=== PATIENT | male | born 1945 | race Caucasian/White ===

== ENCOUNTER 2017-09-07 07:23 | Day surgery (SDC) | payer MEDICARE ==
[~2017-09-07] VITALS: Ht 177.8 cm; Wt 84.6 kg
[~2017-09-07 07:23] MED LIST: ASPI81TA82 PO; ATEN-102 PO; OMEG100010 PO; PROT40TA PO; VITA20003
[2017-09-07] MEDS ORDERED: IOHEXOL 350 MG/ML 50 ML BTL (for Cath Lab) OTHER ONE (07:24)
[2017-09-07] MEDS ORDERED: NS 1000P @30 MLS/HR (KVO) IV SCH (07:45)
[2017-09-07 07:57] VITALS: BP 138/88; PULSE 80; RESP 17; TEMP 97.8; O2SAT 96
[2017-09-07] MEDS ORDERED: PROT40TA PO (08:03)
[2017-09-07] MEDS ORDERED: EVOL1.7I (08:03)
[2017-09-07] MEDS ORDERED: VITA1000 PO (08:03)
[2017-09-07] MEDS ORDERED: ASPI-516 CHEW (08:03)
[2017-09-07] MEDS ORDERED: COQ-30CA2 (08:03)
[2017-09-07] MEDS ORDERED: EZET10 PO (08:03)
[2017-09-07] MEDS ORDERED: PRAS10TA PO (08:03)
[2017-09-07] MEDS ORDERED: AZO-450T (08:03)
[2017-09-07] MEDS ORDERED: NITR1SUB3 SL (08:03)
[2017-09-07 08:07] LABS: AUTOMATED NEUTROPHIL # 2.9 TH/MM3 (1.8-7.7); BASOPHIL % 0.5 % (0.0-2.0); EOSINOPHIL # 0.3 TH/MM3 (0-0.4); EOSINOPHIL % 4.7 % (0.0-4.0); HEMATOCRIT 43.3 % (39.0-51.0); HEMOGLOBIN 15.2 GM/DL (13.0-17.0); LYMPH % 43.6 % (9.0-44.0); LYMPHOCYTE # 2.8 TH/MM3 (1.0-4.8); MEAN CELL VOLUME 90.9 FL (80.0-100.0); MEAN CORPUSCULAR HEMOGLOBIN 31.8 PG (27.0-34.0); MEAN PLATELET VOLUME 8.7 FL (7.0-11.0); MONO % 6.4 % (0.0-8.0); MONOCYTE # 0.4 TH/MM3 (0-0.9); NEUT % 44.8 % (16.0-70.0); PLATELET COUNT 175 TH/MM3 (150-450); RED BLOOD COUNT 4.76 MIL/MM3 (4.50-5.90); RED CELL DISTRIBUTION WIDTH 12.6 % (11.6-17.2); WHITE BLOOD COUNT 6.5 TH/MM3 (4.0-11.0)
[2017-09-07 08:14] LABS: INTERNATIONAL NORMALIZED RATIO 1.2 RATIO; PROTHROMBIN TIME - PATIENT 11.9 SEC (9.8-11.6)
[2017-09-07 08:30] LABS: BICARBONATE 27.8 MEQ/L (21.0-32.0); CALCIUM 8.6 MG/DL (8.5-10.1); CREATININE 1.01 MG/DL (0.60-1.30)
[2017-09-07] MEDS ORDERED: HEPARIN-NS/PF INJ 1,000 ML ONE (09:17)
[2017-09-07] MEDS ORDERED: VERAPAMIL HCL 5 MG/2 ML VIAL ONE (09:20)
[2017-09-07] MEDS ORDERED: HEPARIN SODIUM - IV 10,000 UNITS/10 ML VIAL ONE (09:20)
[2017-09-07] MEDS ORDERED: MIDAZOLAM HCL 2 MG/2 ML VIAL ONE (09:20)
--- NOTE | 2017-09-07 10:19 | CATHPROC ---
[employer] HIS Report Study Information Study Number Admission Scheduled Start Study Start [id number] Sep 07 2017 7:23AM 09/07/2017 Sep 07 2017 9:27AM Study Type [place] Service Left Heart Cath Cardiac Catheterization Admit Source Facility Department Other [facility] - Junior Accountant Bookkeeper Physician and Clinical Staff Initial Gagandeep Diop Bedspring Assembler Catarina Beard,[place] Recorder Caro Flores,RT(R) Scrub Mack Hobson RCIS(BS) Procedures Performed Procedure Location (Site) Vessel Name Coronary Angiograms RCA Right Coronary L Heart Cath Wire insertion Radial (right) Radial Art. Equipment Time License Examiner Description Size Mfg Part Number Used/Scraped TRANSDUCER, TRUWAVE [id number] 09:55 LEVIN ABDULLAHI * Used W/STOCKCOCK *[id number] *[id number] *[id number] 09:55 [employer] PACK, CCL CUSTOM * Used *[id number] 09:55 [employer] SUPPORT, ARTERIAL ADULT 25004 *[id number] Used BAND, RADIAL COMPRESSION TR [id number] 10:08 [employer] MEDICAL 29CM Used LARGE 29 *[id number] 09:55 [employer]iga WIRE, EXCHANGE 260CM 3MMJ 260CM Used *[id number] 09:55 NAMIC MANIFOLD, 4 PORT * Used *[id number] 09:55 [employer] OMNIPAQUE, 350 MG, 150ML 150ML [id number] Used 10:08 [employer]COMED OMNIPAQUE, 350 MG, 150ML 150ML [id number] Used [id number] 09:55 [employer] BLANKET,WARM AIR CCL * Used *[id number] SHEATH, FR6 TRANSRADIAL [id number] 09:55 TERY Combinator MEDICAL FR 6 Used SLENDER 10CM *[id number] History: Current Medications Medication Dosage/Unit Route Frequency Last Date/Time Taken ASA EFFIENT History: Allergies Allergy Reaction codeine pravastatin simvastatin amlodipine atorvastatin History: Risk Factors Family History of Hypertension Dyslipidemia Previous SC Previous Heart Failure Premature CAD Yes Yes No No No Prior Valve Prior PCI Prior PCIDate Prior CABG Surgery No Yes 09/06/2015 No Cerebrovascular Peripheral Artery Chronic Lung On Dialysis Diabetes Disease Disease Disease No No No No No History: Symptoms/Diagnosis Selection Items Chest pain History: CV Disease Selection Items Known CAD History: Stress Tests Stress or Imaging Studies Performed Yes Standard Exercise Stress Test No Stress Echo No Stress Test SPECT Stress Test SPECT Result Stress Test SPECT Ischemia Risk/Extent Yes Positive Intermediate Stress Test CMR No Cardiac CTA Coronary Calcium Score No No History: Other Current Smoker Method Quit Packs a Day Years Used Pack Years No Cigarettes 41 Years Ago 1 6 6 Labs Hgb (g/dl) Hct (%) RBC (MIL/MM3) WBC (l/cumm) Platelets (thousands) 11.60-17.00 35.00-51.00 4.00-5.90 4.00-11.00 150.00-450.00 15.2 43.3 4.7 6.5 175 Glucose (mg/dl) BUN (mg/dl) Creatinine (mg/dl) BUN:Creatinine (1:x) 74.00-106.00 7.00-18.00 0.50-1.30 10.00-20.00 111 15 1.0 15 Na (meq/l) K (meq/l) Cl (meq/l) CO2 (mmol/L) Ca (mg/dl) 136.00-145.00 3.50-5.10 98.00-107.00 21.00-32.00 8.50-10.10 141 4.2 108 27.8 8.6 PT (sec) PTT (sec) INR (PTT:PT) 9.80-11.60 24.30-30.10 0.90-1.10 11.9 26.6 1.2 CPK-MB (ng/ML) 0.50-3.60 Not Drawn Medication Medication Total Dose (Bolus/Oral) Medication Total Dosage/Unit 1% XYLOCAINE 20 mL FENTANYL 25 mcg RADIAL COCKTAIL 5 mL (Bolus) VERSED 0.5 mg Medications (Bolus/Oral) Medication Time Given Dosage/Unit Administered By Reason 1% XYLOCAINE 09/07/2017 9:53:40 AM 20 mL Patient arrived on 20 mL 1% XYLOCAINE in Right Radial via Subcutaneous. VERSED 09/07/2017 9:53:42 AM 0.5 mg Catarina Beard 0.5 mg VERSED given in lab by Catarina Beard, RN in Left Antecubital via Peripheral IV. Ntg 200mcg Verapamil 2.5mg Heparin RADIAL COCKTAIL 09/07/2017 9:55:06 AM 5 mL (Bolus) 3000U Patient arrived on 5 mL (Bolus) RADIAL COCKTAIL in Right Radial via Radial. Using [Solution Name]. Re ason: Ntg 200mcg Verapamil 2.5mg Heparin 3000U. 3400 HEPARIN FENTANYL 09/07/2017 10:17:09 AM 25 mcg Catarina Beard 25 mcg FENTANYL given in lab by Catarina Beard RN via Peripheral IV. Medication (Drip) Medication Time Given Dosage/Unit Concentration/Unit Diluent (ml) Solution IV Solutions 09/07/2017 9:27:32 AM 0 mL (IV) 500 NaCl .9 Patient arrived on IV Solutions in Left Antecubital via Peripheral IV. Pump/Drip Flow = 20 ml/hr usin g NaCl .9. Initial Case Assessment Cardiovascular HR Rhythm NIBP Chest Pain 70 REG 157/85 0 Edema Present Skin color Skin None Normal Warm Circulatory - Right Pulses Dorsalis Pedis Femoral Radial 2 2 2 Scale (0,1,2,3,4,d) Circulatory - Left Pulses Dorsalis Pedis Femoral Radial 2 Scale (0,1,2,3,4,d) Circulatory - Lower Extremities Color Lower Right Color Lower Left Normal Normal Neurological State Oriented to time-place- Alert Moves all extremities person Respiration - General Respiration Rate SpO2 (%) (B/min) 8 97 Final Case Assessment Cardiovascular HR Rhythm NIBP Chest Pain 68 REG 145/91 0 Edema Present Skin color Skin None Normal Warm Circulatory - Right Pulses Dorsalis Pedis Femoral Radial 2 2 2 Scale (0,1,2,3,4,d) Circulatory - Left Pulses Dorsalis Pedis Femoral Radial 2 Scale (0,1,2,3,4,d) Circulatory - Lower Extremities Color Lower Right Normal Neurological State Oriented to time-place- Alert Moves all extremities person Respiration - General Respiration Rate SpO2 (%) (B/min) 10 94 Chronological Log Time Study Chronological Log 9:27:23 Patient arrived via Bed. 9:27:24 Patient Name, D.O.B, / Armband Verified By R.N. ::24 Consent signed by the physician and the patient and verified by the Junior Accountant Bookkeeper staff. :27:25 Pre-op and post- op instructions given; patient acknowledges understanding of instructions. Verbal Stimulation=~VERBAL~ Physical Stimulation=~PHYSICAL~ Airway=~AIRWAY~ Respiration=~RESPIR ATION~ 9:27:25 TOTAL=~TOTAL~. (0=absent, 1=limited, 2=present) 9::27 Presedation assessment performed by Junior Accountant Bookkeeper RN. 9:: Allens test performed on the right radial and ulnar artery. 9:: Immediate Presedation assesment performed by physician. 9::28 Patient has been NPO for More than 6Hrs. 9:: Skin Breakdown- 9:: Patient Warmer Placed on the Table. 9::30 Genevieve Prominences Protected 9::32 A # 20 IV was noted in the Antecubital (left). Grade = 0 9::32 Patient arrived on IV Solutions in Left Antecubital via Peripheral IV. Pump/Drip Flow = 20 m l/hr using NaCl .9. 9:27:33 History and physical on the chart or being dictated. Vitals capture started with the following parameters, Patient=Adult, Interval=5 min, Initial Pr luqqtl=439 mmHg, 9:32:45 Deflation Rate=5 mmHg, Cuff placed on Left Arm 9:33:20 HR=68 bpm, XYHS=111/90 mmhg, SpO2=98.0 %, Resp=10 B/min, Pain=0, Dinesh=10, Miranda=2 9:36:12 Reference ECG taken 9:39:06 HR=70 bpm, PNQF=474/85 mmhg, SpO2=97.0 %, Resp=20 B/min, Pain=0, Dinesh=10, Miranda=2 Assessment: Initial Case, HR=70 BPM, Rhythm=REG, WNOM=429/85 mmhg, Chest Pain=0, Edema=None, Color=Normal, Skin = Warm Right Pulses: Jaime Ped=2, Femoral=2, Radial=2 Left Pulses: Jaime Ped=2 9:40:43 Lower Right Extremities: Color=Normal Lower Left Extremities: Color=Normal Neurological: State=Alert, Ox3, LITTLEJOHN Respiration: Resp=8 B/min, SpO2=97 % 9:41:31 Right Radial and groin(s) prepped with 2% chlorhexidine, and draped after a 3 min. waiting t mary. 9:43:22 HR=66 bpm, TWKP=058/85 mmhg, SpO2=98.0 %, Resp=8 B/min, Pain=0, Dinesh=10, Miranda=2 9:44:07 MD paged 9:45:10 Pressure channel 1 zeroed. 9:47:16 MD arrived. 9:48:21 HR=66 bpm, JYQP=358/86 mmhg, RtY9=519.0 %, Resp=8 B/min, Pain=0, Dinesh=10, Miranda=2 Time Out. Correct patient, correct procedure, correct physician, power injector not loaded with contrast with surgical 9:52:55 team present. Time Out Concurred by MD and individual staff in procedure. 9:53:08 Case Start 9:53:20 HR=78 bpm, BKOW=589/92 mmhg, PrJ4=765.0 %, Resp=11 B/min, Pain=0, Dinesh=10, Miranda=2 9:53:40 Patient arrived on 20 mL 1% XYLOCAINE in Right Radial via Subcutaneous. 9:53:42 0.5 mg VERSED given in lab by Catarina Beard, [place] in Left Antecubital via Peripheral IV. 9:54:18 Access site was Radial Artery.RT 9:54:26 A wire was inserted via Radial (right). A SHEATH, FR6 TRANSRADIAL SLENDER 10CM FR 6 was advanced into the Fem Art (right) using the Per cutaneous 9:54:39 technique. Patient arrived on 5 mL (Bolus) RADIAL COCKTAIL in Right Radial via Radial. Using [Solution Nam e]. Reason: Ntg 9:55:06 200mcg Verapamil 2.5mg Heparin 3000U. 3400 HEPARIN A JR 4.0 INFINITI CATHETER FR 6 was advanced over a wire. OMNIPAQUE, 350 MG, 150ML 150ML was us ed for 9:57:07 injections. 9:58:29 HR=75 bpm, RAFP=328/76 mmhg, SpO2=97.0 %, Resp=8 B/min, Pain=0, Dinesh=10, Miranda=2 Recorded Pressure: LV, HR=72, Condition=Condition 1 9:59:08 (Left Ventricle) LV 124/5/12 Recorded Pressure: LV, Ao, HR=74, Condition=Condition 1 9:59:24 (Left Ventricle) LV 126/1/11, (Aorta) Ao 126/71/97 Recorded Pressure: Ao, HR=73, Condition=Condition 1 9:59:51 (Aorta) Ao 127/72/97 10:00:40 The RCA was injected and visualized at various angles. OMNIPAQUE, 350 MG, 150ML 150ML used . After removing the current catheter a JL 3.5 INFINITI CATHETER FR 6 was advanced over a WIRE, E XCHANGE 260CM 10:02:35 3MMJ 260CM. 10:04:01 HR=81 bpm, EICS=400/91 mmhg, SpO2=97.0 %, Resp=8 B/min, Pain=0, Dinesh=10, Mirnada=2 10:06:49 Catheter was removed Assessment: Final Case, HR=68 BPM, Rhythm=REG, MZNG=246/91 mmhg, Chest Pain=0, Edema=None, Col or=Normal, Skin = Warm Right Pulses: Jaime Ped=2, Femoral=2, Radial=2 10:07:15 Left Pulses: Jaime Ped=2 Lower Right Extremities: Color=Normal Neurological: State=Alert, Ox3, LITTLEJOHN Respiration: Resp=10 B/min, SpO2=94 % 10:07:43 Catheter(s) removed without difficulty Radial Compression Device Used. 12 mLs of air placed in BAND, RADIAL COMPRESSION TR LARGE 29 2 9CM. Affected 10:07:45 hand 95 % O2 saturation. 10:08:08 Sterile dressing applied to site 10:08:09 No case complications noted. 10:08:09 Cine recording checked. 10:08:10 Case End 10:08:11 Bedside Report will be given. 10:08:13 Contrast Scanned 10:08:23 HR=63 bpm, GSEJ=362/84 mmhg, SpO2=97.0 %, Resp=9 B/min, Pain=0, Dinesh=10, Miranda=2 10:08:27 A Left Heart Cath was performed. 10:08:30 [facility] Clinical correlaton risk stratification. 10:13:22 YXVI=709/86 mmhg, SpO2=94.0 %, Pain=0, Dinesh=10, Miranda=2 10:13:42 Vitals capture stopped. 10:17:09 25 mcg FENTANYL given in lab by Catarina Beard, [place] via Peripheral IV. End Study - Contrast Media Used In Study Contrast Total Opened (mL) Total Used (mL) Total Wasted (mL) Omnipaque 30 30 0 End Study - Maximum Contrast Load Max Contrast Load (mL) 423.0 End Study - Radiation Exposure Fluoro Time (minutes) 2.6 End Study - Sheaths Sheaths Pulled By Sheath Hold Time (min) Mack Hobson End Study - Patient Disposition Complications Transferred To Interventional Outcome No Outpatient Bed No attempt made
[2017-09-07] MEDS ORDERED: MISC INFORMATION XX ONE (10:30)
--- NOTE | 2017-09-07 10:52 | MA ---
cc: GAGANDEEP STRE[address] DO DATE 09/07/2017 PROCEDURE Left heart catheterization, coronary angiogram, moderate sedation 10 minutes. PREPROCEDURE DIAGNOSIS Shortness of breath, abnormal stress test. POSTPROCEDURE DIAGNOSIS Mild to moderate coronary artery disease. MEDICATIONS Versed 0.5 mg, fentanyl 25 mcg, nitro 200 mcg, verapamil 2.5 mg, heparin 3400 units. CONTRAST USED 30 cc. FLUOROSCOPY 2.6 minutes. SEDATION Moderate sedation, 10 minutes. ESTIMATED BLOOD LOSS 10 cc. PROCEDURAL SUMMARY Stephen Sahni is a pleasant 71-year-old male who sees my partner, Dr. Dolan, in the office. The patient underwent an exercise nuclear stress test which showed possible inferior and inferoseptal ischemia and because of this he was recommended cardiac catheterization. The risks, benefits and alternatives were explained to him and he consented as such. He was brought to the lab and prepped in the usual sterile fashion. The right radial artery was accessed using a modified Seldinger technique with placement of a 5/6 Romansh Slender sheath. This was easily aspirated and flushed. A JR4 was advanced over a J-wire to the ascending aorta and across the aortic valve for measurement of left ventricular pressure. This was pulled back across the aortic valve showing no significant gradient of aortic stenosis. JR4 was used for selective angiography of the right coronary artery system. This was exchanged out for a JL 3.5 which was used for selective angiography of the left coronary artery system. The JL 3.5 was removed over a J-wire. A radial band was placed over the arteriotomy site for hemostasis. The patient left the ship laborer cardiovascularly stable. FINDINGS Left Main: Normal size vessel with no significant disease. It bifurcates into an LAD and circumflex. LAD: Normal size vessel with a 30% lesion in the midportion at the takeoff of the first diagonal and tapers distally. The diagonal has mild disease throughout but has an upper branch that has 80% stenosis in the ostium but is overall a small vessel at 1 mm. Left Circumflex: Normal size vessel with no significant disease. It gives off two obtuse marginals with no significant disease. RCA: Normal size vessel with multiple stents noted throughout which are all patent. There is mild to moderate in-stent restenosis of 30% in the midportion of the RCA but no significant disease. It is a dominant vessel with a PDA with no significant disease. LVEDP 11. IMPRESSIONS 1. Shortness of breath. 2. Abnormal stress test. 3. Mild to moderate coronary artery disease as above. RECOMMENDATIONS 1. Mr. Sahni will be recommended continued medical therapy. 2. He will be discharged home for follow-up with Dr. Dolan. 3. He was restarted on his Effient in anticipation of possible PCI. At this time he is greater than a year from his drug-eluting stent and this may be stopped. Thank you for allowing me to see Stephen Sahni. If there are any questions, please do not hesitate to call. Gagandeep Street DO VGP/BT /10:05 AM /10:24 AM
--- NOTE | 2017-09-07 17:31 | EKG ---
Date Performed: 09/07/2017 Time Performed: 07:57:50 PTAGE: 71 years EKG: Sinus rhythm . Normal ECG PREVIOUS TRACING : 07/03/2016 07.35 Compared to prior tracing no significant change DOCTOR: Marian Diane Interpretating Date/Time 09/07/2017 17:30:34
== END 2017-09-07 14:15 | disposition home or self-care (01) ==
LOC: HDOC 07:23 → HDIC 07:23 → HDOC 14:15
PROVIDERS: ATTEND Nuclear Medicine Nuclear Cardiology
DX: I25.10 Atherosclerotic heart disease of native coronary artery without angina pectoris (principal); R06.02 Shortness of breath; E78.5 Hyperlipidemia, unspecified; R73.03 Prediabetes; Z01.818 Encounter for other preprocedural examination; Z01.810 Encounter for preprocedural cardiovascular examination
CPT/HCPCS: 80048; 85025; 85610; 85730; 93005; 93454; C1769; C1893; J1644; J2250; J3010; Q9967